=== PATIENT | female | born 1955 | race Caucasian/White ===

== ENCOUNTER 2020-06-29 21:25 | Emergency (ER) | payer OTHER ==
[~2020-06-29] VITALS: Ht 165.1 cm; Wt 72.1 kg
[2020-06-29 21:25] VITALS: BP_SYST 160
[2020-06-29] MEDS ORDERED: ASPIRIN 81 MG TAB.CHEW PO ONE (22:30)
[2020-06-29 22:47] LABS: HEMATOCRIT 41.6 % (36-48)
[2020-06-29 22:51] LABS: BASOPHILS # (AUTO) 0.1 K/uL (0.0-0.2); EOSINOPHILS # (AUTO) 0.4 K/uL (0.0-0.4); EOSINOPHILS % (AUTO) 4.4 % (0.0-4.0); HEMOGLOBIN 14.1 g/dL (12.0-16.0); LYMPHOCYTES # (AUTO) 2.2 K/uL (1.0-5.5); LYMPHOCYTES % (AUTO) 25.6 % (20.5-51.5); MEAN CORPUSCULAR HEMOGLOBIN 32 pg (27-31); MEAN CORPUSCULAR HGB CONC 34 % (32-36); MEAN CORPUSCULAR VOLUME 93 fL (79.0-98.0); MONOCYTES # (AUTO) 0.7 K/uL (0.0-1.0); NEUTROPHILS # (AUTO) 5.1 K/uL (1.8-7.7); PLATELET COUNT (AUTO) 235 K/uL (130-430); RED BLOOD CELL COUNT(AUTO) 4.47 MIL/uL (4.2-6.2); RED CELL DISTRIBUTION WIDTH 14.1 % (9.0-15.0); WHITE BLOOD COUNT (AUTO) 8.4 K/uL (4.8-10.8)
[2020-06-29 22:55] LABS: CALCIUM 9.1 mg/dL (8.4-11.0); CREATININE 1.05 mg/dL (0.55-1.30); POTASSIUM 4.1 mmol/L (3.5-5.1)
[2020-06-29 23:01] LABS: ALBUMIN 3.9 g/dL (3.4-4.8); TOTAL BILIRUBIN 0.1 mg/dL (0.0-1.0)
[2020-06-30 02:04] VITALS: BP_SYST 140
[2020-06-30] MEDS ORDERED: CYCL-10 PO (02:19)
== END 2020-06-30 01:58 | disposition home or self-care (01) ==
LOC: SED 21:25
DX: S16.1XXA Strain of muscle, fascia and tendon at neck level, initial encounter (principal); S23.3XXA Sprain of ligaments of thoracic spine, initial encounter; S00.83XA Contusion of other part of head, initial encounter; M25.511 Pain in right shoulder; R07.89 Other chest pain; Z88.0 Allergy status to penicillin; V49.49XA Driver injured in collision with other motor vehicles in traffic accident, initial encounter; Y93.89 Activity, other specified; Y92.89 Other specified places as the place of occurrence of the external cause; Y99.8 Other external cause status
CPT/HCPCS: 36415; 70450; 71045; 71260; 72125; 72128; 73030; 74177; 76376 ×2; 80053; 82550; 83880; 84484; 85025; 99285; Q9967